=== PATIENT | female | born 1995 | race Caucasian/White ===

== ENCOUNTER → 2016-10-24 | Outpatient (CLI) | payer OTHER ==
[~2016-10-24] MED LIST: CIPROFLOXACIN500 MG PO; LORTAB 5/500 501 TAB PO; NOMEDS *; PERCOCET 10 MG1 EACH PO; PHENERGAN 25MG.25 M1 PO; Zofran4 MG PO
== END ==
LOC: LAB 12:09
DX: R53.83 Other fatigue (principal); Z33.1 Pregnant state, incidental

== ENCOUNTER 2017-02-10 14:04 | Emergency (ER) | payer OTHER ==
[~2017-02-10] VITALS: Ht 160 cm; Wt 54.4 kg
--- NOTE | 2017-02-10 14:12 | Emergency Room Report ---
History of Present Illness Time Seen by [email or web address] Presenting Problem in Triage Pt arrived:Wheelchair Presenting Problem:VOMITING TODAY, MIGRAINE X 2 DAYS, CHEST PAIN STARTED ABOUT 30 MINUTES AGO. CHEST PAIN UNDER BREAST ON RIGHT SIDE. PT IS , 20 WEEKS TOMORROW. Onset of symptoms date/time:02/09/1704/16/800 or onset unknown for: Treatment Prior to Arrival: CHIROPRACTIC CARE Provided by: Sepsis Risk Assessment: Temp: 98.4 B/P: 169/46 MAP: 87 Pulse: 129 Resp: 20 Recent fever? N Clinical Suspician of Infection? N Mental Status: 1 - Regular (Normal Baseline) Sepsis Risk:Possible Sepsis Risk Have you (or family members/close friends) recently traveled outside the [place]? N If Yes, where/when: Have you had exposure to infectious disease within the past month? TB? Other? Specify: Comment The patient has several complaints. She is 20 weeks' gestation . She complains of a migraine since Monday 2 days ago. It is a left-sided headache with nausea and vomiting. She has a long history of migraines, increasing in frequency since she got . She says Monday she had some numbness of the LEFT side of her face and has had this with previous migraines. She is taking magnesium for migraines. She also complains of RIGHT sided inframammary chest pain that increases with a deep breath with shortness of breath. This started today. No leg pain, swelling, or hemoptysis. No cough or fever. ALLERGIES Coded Allergies: nickel (02/10/17) History Medical History General Angina: No FL: No Hypertension? No Hyperlipidemia? No CHF? No COPD? No Asthma? Yes Hernia? No CVA? No Seizures? No Diabetes? No UTI? Yes Stones? Yes GB Disease: No Hepatitis? No Cataracts? No Glaucoma? No MRSA? No TB? No Cancer? 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 LMP 5 Months Ago Family History Family Hx Diabetes Yes CAD Yes Hypertension Yes Hyperlipidemia Yes Cancer Yes TB No Social History Smoking Hx Smoker: Never Smoker Tobacco: No Alcohol Alcohol: No Review of Systems All Other Systems Reviewed and Negative Constitutional diaphoresis, denies fever Respiratory denies cough, shortness of breath Cardiovascular chest pain, denies edema Gastrointestinal denies abdominal pain, nausea, vomiting Psychiatric/Neurological headache, numbness, denies weakness Physical Exam Vital Signs Vital Signs Date Time Temp Pulse Resp B/P Pulse O2 O2 Flow FiO2 Ox Delivery Rate 02/10 1606 98.4 94 20 109/66 99 02/10 1505 94 20 109/66 99 02/10 1406 98.4 129 20 169/46 100 General Appearance no apparent distress Eye Exam - bilateral eye normal exam, bilateral eye PERRL, bilateral eye EOMI Ear, Nose, Throat hearing grossly normal, normal ENT inspection Neck normal inspection, non-tender, supple, full range of motion Respiratory Status Yes: trachea midline, chest symmetrical, non tender chest. No: respiratory distress. Lung Sounds bilateral: normal breath sounds, lungs clear. Cardiovascular normal exam, regular rate/rhythm, no peripheral edema, no gallop, no JVD, no murmur, no rub, normal peripheral pulses Peripheral Pulses Pulses normal Yes Gastrointestinal normal bowel sounds, normal exam, non tender, soft, no organomegaly Extremities non-tender, normal range of motion, normal inspection Neurologic alert, drinking water technician II-XII nml as tested, normal exam, no motor/sensory deficits, oriented x 3 Mental status normal mood/affect Skin intact, normal color, warm/dry Medical Decision Making LABS/Meds/Orders Pt receiving controlled substance in ED? No Results/Orders Laboratory Tests 02/10/17 1420: Urine Color YELLOW, Urine Appearance CLOUDY, Urine pH 6.0, Ur Specific [place] 1.025, Urine Protein TRACE H, Urine Ketones 3+ H, Urine Blood NEGATIVE, Urine Nitrate NEGATIVE, Urine Bilirubin NEGATIVE, Urine Urobilinogen 0.2, Ur Leukocyte Esterase NEGATIVE, Urine WBC 5-10, Ur Squamous Epith Cells 5-10, Urine Bacteria 4+, Urine Mucus 1+, Urine Glucose NEGATIVE 02/10/17 1415: Sodium 133 L, Potassium 3.5, Chloride 100, Carbon Dioxide 23, BUN 4 L, Creatinine 0.5 L, Estimated Creat Clear 150, Estimated GFR (MDRD) 153, Glucose 100, Calcium 9.4, Total Bilirubin 0.4, AST 15, ALT 13, Alkaline Phosphatase 96, Creatine Kinase 25 L, CK-MB (CK-2) Rel Index 2.0, CK and CKMB Interp < 0.5, Troponin I < 0.02, Total Protein 7.9, Albumin 3.5, Globulin 4.4 H, Albumin/ Globulin Ratio 0.8 L, D-Dimer < 100, WBC 9.8, RBC 4.31, Hgb 13.4, Hct 37.5, MCV 87.0, RDW 12.9, Plt Count 314, MPV 7.8, Gran % 76.6, Gran # 7.5, Lymphocytes % 19.1, Monocytes % 3.4, Eosinophils % 0.5, Basophils % 0.3, Lymphocytes # 1.9, Monocytes # 0.3, Eosinophils # 0.1, Basophils # 0.0, PUBS MCHC 35.8 H, MCH 31.1 Current Medication Orders Sig/Sol Start time Last Medication Dose Route Stop Time Status Admin Metoclopramide HCl 10 MG ONCE ONE 02/10 1500 DC 02/10 IVP 02/10 1501 1500 Metoclopramide HCl 0 .STK-MED ONE 02/10 1458 DC .ROUTE Sodium Chloride 1,000 ML .STK-MED ONE 02/10 1457 DC IV Sodium Chloride 1,000 ML .Q1H1M 02/10 1445 DC 02/10 IV 02/10 1545 1457 Sodium Chloride 10 ML PRN PRN 02/10 1415 DCD IV 02/11 1414 Orders Procedure Date/time Status D-DIMER 02/10 1451 Complete CULTURE, URINE 02/10 1420 Active ELECTROCARDIOGRAM REQUEST 02/10 1414 Active IV SALINE LOCK 02/10 1414 Active URINALYSIS/COMPLETE 02/10 1414 Complete URINE 02/10 1414 Complete CBC WITH AUTO DIFF 02/10 1414 Complete CARDIAC ENZYMES 02/10 1414 Complete CHEM 12 PROFILE 02/10 1414 Complete 12 LEAD EKG-[facility] (INITIAL) 02/10 UNK Active CM/EKG CM/EKG Comments EKG interpreted by Sixto Baugh MD: Rhythm: sinus tachycardia Rate: 118 [place]: normal Ectopy: none Conduction: normal ST Segment Changes: none T Wave Changes: none Q Waves: none No evidence of acute ischemia or injury Baseline artifact present, but I consider the EKG adequate for accurate interpretation. XRAY/CT/US XRAY/CT/US XRAY chest Comment Chest x-ray interpreted by Sixto Baugh M.D. No infiltrate, pneumothorax, pleural effusion, or wide mediastinum. Progress - 2:50 PM: Discussed evaluation and management concerning her . I discussed possible medications for migraine. She is in favor of Reglan, which is category B. She will be given IV fluids, she states she feels dehydrated. I discussed chest x-ray and workup for pulmonary embolism. She is also in favor of this. Departure Departure Disposition DC Home or Self Care(routine) Clinical Impression Primary Impression: Migraine Qualifiers: Migraine type: without aura Status migrainosus presence: with status migrainosus Intractability: not intractable Qualified Code: G43.001 - Migraine without aura, not intractable, with status migrainosus Secondary Impressions: Intercostal muscle strain Qualifiers: Encounter type: initial encounter Qualified Code: S29.011A - Strain of muscle and tendon of front wall of thorax, initial encounter Condition STABLE Referrals Link JOHNSON,Jerod (Family) Patient Instructions DI for Atypical Chest Pain, DI for Migraine Additional Instructions Additional instructions for HEADACHE: See your physician as soon as possible for further evaluation. Return immediately if worsening headache, vomiting, problems with vision or speech, fever, numbness or weakness of the extremities, neck pain or stiffness. Additional instructions for CHEST PAIN: Return immediately if worsening chest pain, vomiting, shortness of breath, fever , coughing of blood. Prescriptions Current Visit Scripts Metoclopramide Hcl (Reglan) 5 MG PO TIDP PRN headache, vomiting #10 TAB ED Critical Care Critical Care No at 2021
[2017-02-10 14:26] LABS: HEMOGLOBIN 13.4 g/dL (12.2-16.2); LYMPH # 1.9 K/mm3 (0.7-4.5); LYMPH % 19.1 % (10-50.0)
[2017-02-10 14:30] LABS: URINE BILIRUBIN - DIPSTICK NEGATIVE (NEG); URINE BLOOD NEGATIVE (NEG)
[2017-02-10 14:47] LABS: BUN 4 mg/dL (7-18); GFR (ESTIMATED) 153 ML/MIN (59-)
[2017-02-10] MEDS ORDERED: REGLAN 5MG TABLE5 MG PO (15:56)
--- NOTE | 2017-02-10 15:57 | RADIOLOGY REPORT PS360 ---
CHEST-PORTABLE HISTORY: R chest pain, sob ORDERING PHYSICIAN: Sixto Baugh MD PATIENT AGE: 21 years COMPARISON: None available FINDINGS: The cardiomediastinal silhouette and pulmonary vascularity are within normal limits. No lobar consolidation or collapse is evident. 7 mm nodular opacity is present in the right upper lobe overlying the posterior aspect of the right fourth rib and may be due to summation artifact. Cannot exclude the possibility of a small pulmonary nodule. Follow-up radiograph suggested.. No acute bony abnormalities. IMPRESSION: 1. No acute finding. 2. Nonspecific right upper lobe nodular opacity. Follow-up PA and lateral outpatient chest may be of further value
[2017-02-10 16:06] VITALS: BP 109/66
--- OUTSIDE RECORDS SUMMARY | 2017-02-11 20:15 | External Medical Summary Rpt | CCD ---
Author Author , MEMO HAMPTON Address Unknown Phone [email or web address] Care Team Providers Care Site Planner Name Role Phone ESTEPHANIA FELIX, Unavailable Unavailable ESTEPHANIA FELIX ESTEPHANIA FELIX, Unavailable Unavailable ESTEPHANIA FELIX HABASH KENIA, HABASH Unavailable Unavailable KENIA HABASH KENIA, HABASH Unavailable Unavailable [facility], Unavailable Unavailable [facility] WEHRMAN III LUKE, Unavailable Unavailable WEHRMAN III LUKE WEHRMAN III LUKE, Unavailable Unavailable WEHRMAN III LUKE Purpose Continuity of Care Document - 09-06-2013 through 2016 Problems Code Diagnosis DOS Provider Status 3671 MYOPIA 09-25-2013 HABASH KENIA 23906 REGULAR 09-25-2013 HABASH KENIA ASTIGMATISM 65882 ASTHMA, 09-06-2013 [facility] , INC UNSPECIFIED STATUS 5920 CALCULUS OF 09-06-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00 PER LENS FITTING 44291 HABASH HABASH SPECTACLE 4 KENIA KENIA S XCPT APHAKIA MONOFOCAL URINE 03569 JOSE ESCOBEDO 4 [facility] JR CLI TEST INC VISUAL COLOR CMPRSN METHS URNLS DIP 01352 [facility] GARCIA 4 [facility] STICK/TAB INC INC LET REAGENT AUTO MICROSCOP Y BLOOD 00602 [facility] ESC[facility]ED[facility] COUNT 4 [facility] JR CLI COMPLETE INC AUTO&AUTO DIFRNTL WBC THER 95193 JOSE GARCIA PROPH/DX 4 [facility] NJX IV INC INC PUSH SINGLE/1S T SBST/DRUG COMPREHEN 11578 JOSE GARCIA SIVE 4 [facility] [place] [address] JOSE ESCOBEDO LIPASE 4 [facility] JR CLI INC RADEX 52410 ESTEPHANIA ESTEPHANIA ABDOMEN 1 4 [place] [address] ESTEPHANIA ESTEPHANIA ABDOMEN & 4 FELIX FELIX PELVIS W/O CONTRAST MATERIAL Encounters Encounter Start End Date Code Location Performer Type Date [facility] JOSE - 4 4 [facility] OUTPATIEN INC T EMERGENCY 84914 IRINA AREVALO 4 4 III LUKE III LUKE DEPARTMEN T VISIT HIGH/URGE NT SEVERITY EMERGENCY 10066 JOSE 4 4 [facility] DEPARTMEN INC T VISIT LOW/MODER SEVERITY
--- OUTSIDE RECORDS SUMMARY | 2017-02-11 20:15 | External Medical Summary Rpt | CCD ---
Author Author , MEMO Organization MEMO Address Unknown Phone [email or web address] Care Team Providers Care Learning Services Coordinator Name Role Phone ESTEPHANIA FELIX, Unavailable Unavailable ESTEPHANIA FELIX HABASH [...] Provider Status 3671 MYOPIA 09-25-2013 HABASH KENIA 62347 REGULAR 09-25-2013 HABASH KENIA ASTIGMATISM 43265 ASTHMA, 09-06-2013 [facility] INC UNSPECIFIED STATUS 5920 CALCULUS OF 09-06-2013 WEHRMAN III KIDNEY [place] 5921 CALCULUS OF 09-06-2013 WEHRMAN III URETER [place] 5934 OTHER 09-06-2013 ESTEPHANIA URETERIC FELIX OBSTRUCTION 01492 ABDOMINAL 09-06-2013 ESTEPHANIA PAIN, FEILX UNSPECIFIED SITE 26745 ABDOMINAL 09-06-2013 ESTEPHANIA PAIN OTHER FELIX SPECIFIED SITE Procedures Procedure DOS Code Location Performer Comment OPHTH 47970 HABTIRO HABASH MEDICAL 4 KENIA KENIA XM&EVAL COMPRE NEW PT 1/> VST SPHERE V2100 HABASH HABASH SINGLE 4 KENIA KENIA VISION PLANO +/- 4.00 PER LENS DETERMINA 68515 HABASH HABASH TION 4 KENIA KENIA REFRACTIV E STATE FITTING 44489 HABASH HABASH SPECTACLE 4 KENIA KENIA S XCPT APHAKIA MONOFOCAL SCRATCH V2760 HABASH HABASH RESISTANT 4 KENIA KENIA COATING PER LENS COMPREHEN 16220 JOSE GARCIA SIVE 4 [facility] METABOLIC INC INC PANEL URINE 08739 JOSE ESCOBEDO 4 [facility] JR CLI TEST INC VISUAL COLOR CMPRSN METHS URNLS DIP 64072 JOSE GARCIA 4 [facility] STICK/TAB INC INC LET REAGENT AUTO MICROSCOP Y BLOOD 17333 JO[facility] ESCOBEDO COUNT 4 [facility] JR CLI COMPLETE INC AUTO&AUTO DIFRNTL WBC THER 63345 JOSE GARCIA PROPH/DX 4 [facility] NJX IV INC INC PUSH SINGLE/1S T SBST/[place] [address] JOSE ESCOBEDO LIPASE 4 [facility] JR CLI INC RADEX 17456 JOSE GARCIA ABDOMEN 1 4 [facility] [place] [place] [address] JOSE GARCIA ABDOMEN & 4 [facility] PELVIS INC INC W/O CONTRAST MATERIAL Encounters Encounter Start End Date Code Location Performer Type Date [facility] JOSE - 4 4 [facility] OUTPATIEN INC T EMERGENCY 83981 JOSE 4 4 [facility] DEPARTMEN INC T VISIT LOW/MODER SEVERITY EMERGENCY 52545 IRINA AREVALO 4 4 III [facility] III [facility]IGH/URGE NT SEVERITY
--- OUTSIDE RECORDS SUMMARY | 2017-02-11 20:15 | External Medical Summary Rpt | CCD ---
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 KIDNEY [place] 5921 CALCULUS OF 09-06-2013 WEHRMAN III URETER [place] 5934 OTHER 09-06-2013 ESTEPHANIA URETERIC FELIX OBSTRUCTION 88504 ABDOMINAL 09-06-2013 ESTEPHANIA PAIN, FELIX UNSPECIFIED SITE 02472 ABDOMINAL 09-06-2013 ESTEPHANIA PAIN OTHER FELIX SPECIFIED SITE Procedures Procedure DOS Code Location Performer Comment OPHTH 60206 [place] [facility] 4 KENIA KENIA XM&EVAL COMPRE NEW PT 1/> VST SPHERE V2100 HABASH HABASH SINGLE 4 KENIA KENIA VISION PLANO +/- 4.00 PER LENS DETERMINA 58240 HABASH HABASH TION 4 KENIA KENIA REFRACTIV E STATE FITTING 46276 HABASH HABASH SPECTACLE 4 KENIA KENIA S XCPT APHAKIA MONOFOCAL SCRATCH V2760 HABASH HABASH RESISTANT 4 KENIA KENIA COATING PER LENS COMPREHEN 54663 JOSE GARCIA SIVE 4 [facility] METABOLIC INC INC PANEL URINE 24201 JO[facility] ESCOBEDO 4 [facility] JR CLI TEST INC VISUAL COLOR CMPRSN METHS URNLS DIP 73134 JO[facility] GARCIA 4 [facility] STICK/TAB INC INC LET REAGENT AUTO MICROSCOP Y BLOOD 87232 JO[facility] ESCOB[facility]O COUNT 4 [facility] JR CLI COMPLETE INC AUTO&AUTO DIFRNTL WBC THER 91517 JOSE GARCIA PROPH/DX 4 [facility] NJX IV INC INC PUSH SINGLE/1S T SBST/[place] [address] JOSE ESCOBEDO LIPASE 4 [facility] JR CLI INC RADEX 43136 JOSE GARCIA ABDOMEN 1 4 [facility] [place] [address] JOSE GARCIA ABDOMEN & [address] [facility] PELVIS INC INC W/O CONTRAST MATERIAL Encounters Encounter Start End Date Code Location Performer Type Date [facility] JOSE - [address] [facility] OUTPATIEN INC T EMERGENCY [address]36 JOSE [address] [facility] DEPARTMEN INC T VISIT LOW/MODER SEVERITY EMERGENCY 33135 IRINA AREVALO 4 4 III [place] III [facility] HIGH/URGE NT SEVERITY
--- OUTSIDE RECORDS SUMMARY | 2017-02-11 20:15 | External Medical Summary Rpt | CCD ---
Author Author , MEMO HAMPTON Address Unknown Phone [email or web address] Care Team Providers Care Street Car Mechanic Name Role Phone ESTEPHANIA FELIX, Unavailable Unavailable ESTEPHANIA FELIX ESTEPHANIA FELIX, Unavailable Unavailable ESTEPHANIA FELIX HABASH KENIA, HABASH Unavailable Unavailable KENIA HABASH KNEIA, HABASH Unavailable Unavailable KENIA [facility] Un[facility] INC[facility], Unavailable Unavailable [facility] WEHRMAN III LUKE, Unavailable Unavailable WEHRMAN III LUKE WEHRMAN III LUKE, Unavailable Unavailable WEHRMAN III LUKE Purpose Continuity of Care Document - 09-06-2013 through 2016 Problems Code Diagnosis DOS Provider Status 3671 MYOPIA 09-25-2013 HABASH KENIA 20871 REGULAR 09-25-2013 HABASH KENIA ASTIGMATISM 03382 ASTHMA, 09-06-2013 [facility] , INC UNSPECIFIED STATUS 5920 CALCULUS OF 09-06-2013 WEHRMAN III KIDNEY [place] 5921 CALCULUS OF 09-06-2013 WEHRMAN III URETER [place] 5934 OTHER 09-06-2013 ESTEPHANIA URETERIC FELIX OBSTRUCTION 37524 ABDOMINAL 09-06-2013 ESTEPHANIA PAIN, FELIX UNSPECIFIED SITE 71414 ABDOMINAL 09-06-2013 ESTEPHANIA PAIN OTHER FELIX SPECIFIED SITE Procedures Procedure DOS Code Location Performer Comment OPHTH 52257 HABASH HABASH MEDICAL 4 KENIA KENIA XM&EVAL COMPRE NEW PT 1/> VST SCRATCH V2760 HABASH HABASH RESISTANT 4 KENIA KENIA COATING PER LENS DETERMINA 45599 HABASH HABASH TION 4 KENIA KENIA REFRACTIV E STATE SPHERE V2100 HABASH HABASH SINGLE 4 KENIA KENIA VISION PLANO +/- 4.00 PER LENS FITTING 53975 HABASH HABASH SPECTACLE 4 KENIA KENIA S XCPT APHAKIA MONOFOCAL URINE 19440 JOSE ESCOBEDO 4 [facility] JR CLI TEST INC VISUAL COLOR CMPRSN METHS URNLS DIP 95404 JOSE GARCIA 4 [facility] STICK/TAB INC INC LET REAGENT AUTO MICROSCOP Y BLOOD 28962 JOSE ESCOBEDO COUNT 4 [facility] JR CLI COMPLETE INC AUTO&AUTO DIFRNTL WBC THER 78439 JOSE GARCIA PROPH/DX 4 [facility] NJX IV INC INC PUSH SINGLE/1S T SBST/DRUG COMPREHEN 37035 JOSE GARCIA SIVE 4 [facility] [place] [address] JOSE ESCOBEDO LIPASE 4 [facility] JR CLI INC RADEX 35411 ESTEPHANIA ESTEPHANIA ABDOMEN 1 4 [place] [address] ESTEPHANIA ESTEPHANIA ABDOMEN & 4 FELIX FELIX PELVIS W/O CONTRAST MATERIAL Encounters Encounter Start End Date Code Location Performer Type Date [facility] JOSE - 4 4 [facility] OUTPATIEN INC T EMERGENCY 27727 IRINA AREVALO 4 4 III LUKE III LUKE DEPARTMEN T VISIT HIGH/URGE NT SEVERITY EMERGENCY 40106 JOSE 4 4 [facility] DEPARTMEN INC T VISIT LOW/MODER SEVERITY
--- OUTSIDE RECORDS SUMMARY | 2017-02-11 20:16 | External Medical Summary Rpt | CCD ---
Demographics Preferred Language Panamanian Marital Status Unknown Gnosticist Affiliation Unknown Race Unknown Ethnic Group Unknown Author Author , MEMO HAMPTON Address Unknown Phone Immunization No patient found.
--- OUTSIDE RECORDS SUMMARY | 2017-02-11 20:16 | External Medical Summary Rpt | CCD ---
Demographics Preferred Language Indonesian Marital Status Unknown Muslim Affiliation Unknown Race Unknown Ethnic Group Unknown Author Author , MEMO HAMPTON Address Unknown Phone Immunization No patient found.
== END 2017-02-10 16:08 | disposition home or self-care (01) ==
LOC: ER 14:04
PROVIDERS: Emergency Medicine
DX: G43.001 Migraine without aura, not intractable, with status migrainosus (principal); S29.011A Strain of muscle and tendon of front wall of thorax, initial encounter; Z34.02 Encounter for supervision of normal first pregnancy, second trimester

== ENCOUNTER → 2017-02-14 | Outpatient (CLI) | payer OTHER ==
[~2017-02-14] MED LIST changes: +REGLAN 5MG TABLE5 MG PO
--- NOTE | 2017-02-15 08:03 | RADIOLOGY REPORT PS360 ---
US PREG COMP: INDICATION: ANATOMY OB US ORDERING PHYSICIAN: Constantino Owen MD PATIENT AGE: 21 years TECHNIQUE: ultrasound transabdominal scanning. COMPARISON: No previous relevant studies. FINDINGS: Single viable intrauterine gestation. Cephalic position. Placenta: Anterior placenta grade 1. There is average amount fluid. The cervix appears satisfactory. Closed and measuring 4 cm in length. Complete survey performed and was unremarkable on the submitted images as in PACS. No discrete anomalies identified on survey imaging by technologist. Active fetus. Three-vessel cord with satisfactory umbilical cord insertion. 4- chamber heart noted. Survey of brain & ventricles. Face and neck survey unremarkable. Diaphragm and chest views unremarkable. Abdomen: Both kidneys noted and unremarkable. Stomach noted and satisfactory. Spine: Survey of the spine satisfactory with no anomalies identified nor imaged. Both arms and legs noted. Amniotic Fluid: Adequate. Maternal adnexa: No significant findings. Measurements: Average ultrasound age 21 weeks 0 days. Gestational Age 20 weeks 3 days. Estimated due date by ultrasound age 206/27/2017. Estimated weight 401 g which is 82 percentile based on last menstrual period. BPD = 20 weeks 5 days OFD = 21 weeks 0 days HC = 20 weeks 1 day AC = 21 weeks 0 days FL = 21 weeks 5 days Heart Rate = 147 bpm Cerebellum = 20 weeks 4 days Humerus = 21 weeks 3 days HC/AC is 1.11. CI is 78%. FL/BPD is 75%. FL/AC is 23%. IMPRESSION: Live intrauterine gestation in cephalic presentation at 21 weeks 0 days. No obvious anomalies. Anterior grade 1 placenta with average amount of amniotic fluid. Please see above for details.
== END ==
LOC: RAD 14:58
DX: Z36.89 Encounter for other specified antenatal screening (principal)